=== PATIENT | female | born 1960 | race American Indian/Alaskan Native ===

== ENCOUNTER 2016-11-03 12:58 | Outpatient (CLI) | payer BC | END 2016-11-03 12:59 | disposition home or self-care (01) | LOC: MAMMO 12:58 | PROVIDERS: ATTEND Obstetrics & Gynecology | DX: Z12.31 Encounter for screening mammogram for malignant neoplasm of breast (principal) | CPT/HCPCS: 77067; G0202 ==

== ENCOUNTER 2017-11-23 12:13 | Outpatient (CLI) | payer BC ==
--- NOTE | 2017-11-23 14:59 | Mammography Report ---
BILATERAL MAMMOGRAM: FINDINGS: The breasts are almost entirely fat (<25% glandular). No mass, distortion, suspicious calcification, or skin change is seen. No significant change when compared to prior exam in October 2016. CAD was utilized. IMPRESSION: Negative mammogram. There is no mammographic evidence of malignancy. RECOMMENDATION: Follow-up per ACS guidelines. BI-RADS CATEGORY: 1 = Negative ACR BI-RADS MAMMOGRAPHIC CODES: 0 = Needs additional imaging evaluation; 1 = Negative; 2 = Benign; 3 = Probably benign; 4 = Suspicious; 5 = Malignant; 6 = Known biopsy-proven malignancy COMMENT: 1. Dense breast tissue, i.e., adenosis, fibrocystic changes, etc., may obscure an underlying neoplasm. 2. Approximately 10% of cancers are not detected with mammography. 3. A negative mammography report should not delay biopsy if a clinically suspicious mass is present. COMMENT: Patient follow-up letters are generated in [employer].
== END 2017-11-23 12:14 | disposition home or self-care (01) ==
LOC: MAMMO 12:13
PROVIDERS: ATTEND Obstetrics & Gynecology
DX: Z12.31 Encounter for screening mammogram for malignant neoplasm of breast (principal)
CPT/HCPCS: 77067

== ENCOUNTER 2018-12-04 11:27 | Outpatient (CLI) | payer BC ==
--- NOTE | 2018-12-04 13:56 | Mammography Report ---
BILATERAL DIGITAL SCREENING MAMMOGRAM WITH CAD INDICATION: Routine screening mammography. TECHNIQUE: Digital bilateral 2D mammography was obtained in the craniocaudal and mediolateral obliq ue projections. This examination was interpreted with the benefit of Computer-Aided Detection analysi s. COMPARISON: 11/23/2017 FINDINGS: Breast Density: The breasts are almost entirely fatty. There is no evidence of new mass, suspicious calcifications or architectural distortion in either br east. A right lower inner oval circumscribed mass with calcifications is typical of a benign skin les ion and it has been present since 2016. IMPRESSION: No mammographic evidence of malignancy. Recommend routine mammographic screening in one y ear. BI-RADS Category 2: Benign. No mammographic evidence of malignancy. Recommend routine screening ma mmography in one year. A "normal" or negative report should not discourage follow up or biopsy of a clinically significant f inding. A written summary of these findings will be mailed to the patient. The patient will be entered into a mammography reporting system which will generate a reminder letter for the patient's next appointmen t at the appropriate interval. The [employer] recommends yearly mammograms starting at age 40 and continuing as l cale as a woman is in good health. Breast MRI is recommended for women with an approximate 20-25% or greater lifetime risk of breast cancer, including women with a strong family history of breast or ova myra cancer or who have been treated for Hodgkin's disease. Signer Name: Ron Weiss MD Signed: 12/04/2018 1:52 PM Workstation Name: [id number]
== END 2018-12-04 11:28 | disposition home or self-care (01) ==
LOC: MAMMO 11:27
PROVIDERS: ATTEND Obstetrics & Gynecology
DX: Z12.31 Encounter for screening mammogram for malignant neoplasm of breast (principal)
CPT/HCPCS: 77067